=== PATIENT | female | born 1960 | race Two or more races ===

== ENCOUNTER 2021-10-17 08:00 | Outpatient (CLI) | payer OTHER | END 2021-10-17 08:20 | disposition home or self-care (01) | LOC: PPH VACUNA 08:00 | PROVIDERS: ATTEND Emergency Medicine Pediatric Emergency Medicine | DX: Z23 Encounter for immunization (principal) ==

== ENCOUNTER 2021-12-25 11:44 | Outpatient (CLI) | payer OTHER | END 2021-12-25 15:49 | disposition home or self-care (01) | LOC: MRI 11:44 | PROVIDERS: ATTEND Internal Medicine Nephrology | DX: M51.86 Other intervertebral disc disorders, lumbar region (principal) | CPT/HCPCS: 72148 ==